=== PATIENT | male | born 2000 | race Caucasian/White ===

== ENCOUNTER 2024-02-02 19:11 | Emergency (ER) | payer SELFPAY ==
[~2024-02-02] VITALS: Ht 188 cm; Wt 87.5 kg
[2024-02-02 19:29] VITALS: BP_SYST 132; PULSE 71; RESP 18; TEMP 98.6; O2SAT 98
[2024-02-02 21:03] LABS: BARBITURATE, URINE NEGATIVE (NEG <=200); BENZODIAZEPINE, URINE NEGATIVE (NEG <=150); CANNABINOID, URINE POSITIVE (NEG <=50); COCAINE, URINE NEGATIVE (NEG <=150); METHAMPHETAMINES SCREEN,URINE NEGATIVE (NEG <=500); OPIATE, URINE NEGATIVE (NEG <=100); PHENCYCLIDINE SCREEN,URINE NEGATIVE (NEG <=25); UR TRICYCLIC ANTIDEPRESSANTS NEGATIVE (NEG <=300); URINE AMPHETAMINE NEGATIVE (NEG <=500); URINE METHADONE NEGATIVE (NEG <=200); URINE OXYCODONE SCREEN NEGATIVE (NEG <=100)
[2024-02-02 21:58] VITALS: BP_SYST 124; PULSE 73; RESP 18; TEMP 98.5; O2SAT 99
== END 2024-02-02 21:20 | disposition home or self-care (01) ==
LOC: SED 19:11
DX: R00.2 Palpitations (principal); F41.9 Anxiety disorder, unspecified; F12.90 Cannabis use, unspecified, uncomplicated
CPT/HCPCS: 80307; 93005; 99284